=== PATIENT | female | born 1985 | race Hispanic/Latino ===

== ENCOUNTER 2017-05-15 19:00 | Emergency (ER) | payer OTHER, SELFPAY ==
[2017-05-15] MEDS ORDERED: Lidocaine 1% PF 5 ML VIAL ONE ×2 (19:38)
== END 2017-05-15 20:29 | disposition home or self-care (01) ==
LOC: ERS 19:00
DX: S16.1XXA Strain of muscle, fascia and tendon at neck level, initial encounter (principal); F41.9 Anxiety disorder, unspecified; X50.3XXA Overexertion from repetitive movements, initial encounter; Y99.0 Civilian activity done for income or pay
CPT/HCPCS: 20552; J2001

== ENCOUNTER 2017-06-25 19:32 | Emergency (ER) | payer SELFPAY ==
[2017-06-25] MEDS ORDERED: Ketorolac Tromethamine 30 MG/ML VIAL ONE (21:09)
== END 2017-06-25 21:30 | disposition home or self-care (01) ==
LOC: ERS 19:32
DX: S43.401A Unspecified sprain of right shoulder joint, initial encounter (principal); F41.9 Anxiety disorder, unspecified; X50.9XXA Other and unspecified overexertion or strenuous movements or postures, initial encounter
CPT/HCPCS: 96372; J1885